=== PATIENT | female | born 1990 | race African-American/Black ===

== ENCOUNTER 2018-02-16 11:14 | Emergency (ER) | payer BC, SELFPAY ==
[2018-02-16] MEDS ORDERED: Acetaminophen 500 MG TAB ONE (11:46)
--- NOTE | 2018-02-16 12:06 | RAD ---
CHEST 1 VIEW: HISTORY: Fever and congestion. FINDINGS: Cardiac silhouette is magnified by projection. Pulmonary vasculature upper limits of normal. Medias tinum is midline. No lobar consolidation or evidence of pneumothorax. IMPRESSION: No active cardiopulmonary abnormalities are demonstrated. POS: [facility]
[2018-02-16 12:24] LABS: Anion Gap 15 mmol/L (10-20); BUN (Urea Nitrogen) 7 mg/dL (7.0-18.7); Calc. Creatinine Clearance 0 mL/min (70-130); Calcium 9.5 mg/dL (7.8-10.44); Carbon Dioxide 21 mmol/L (22-29); Chloride 106 mmol/L (98-107); Estimated GFR-MDRD 86; Glucose 99 mg/dL (70-105); Potassium 3.4 mmol/L (3.5-5.1); Sodium 139 mmol/L (136-145)
[2018-02-16 12:27] LABS: Band 4 % (5-11); Hemoglobin 13.7 g/dL (12.0-16.0); Lymphocytes 11 % (21-51); MDiff Complete? YES; Mean Corpuscular HGB CONC 32.1 g/dL (32.0-36.0); Mean Corpuscular Hemoglobin 27.9 pg (27.0-31.0); Mean Platelet Volume 8.3 fL (7.4-10.4); Monocytes 18 % (0-10); Neutrophil 66 % (42-75); PLT Morphology Comment Appears Adequate; Platelet Count 271 thou/uL (130-400); RBC Distribution Width 12.6 % (11.5-14.5); Reactive Lymphocytes 1 % (0-10); Red Blood Cell (RBC) Count 4.89 mill/uL (4.20-5.40); White Blood Cell (WBC) Count 11.2 thou/uL (4.8-10.8)
[2018-02-16] MEDS ORDERED: Dexamethasone 10 MG/ML VIAL ONE ×2 (12:46→12:47)
[2018-02-16] MEDS ORDERED: Ondansetron PF 4 MG/2 ML Vial ONE (12:46)
[2018-02-16] MEDS ORDERED: Potassium Chloride 20 MEQ TAB ONE (12:46)
== END 2018-02-16 13:33 | disposition home or self-care (01) ==
LOC: SCSER 11:14
DX: J10.1 Influenza due to other identified influenza virus with other respiratory manifestations (principal); F17.210 Nicotine dependence, cigarettes, uncomplicated
CPT/HCPCS: 71045; 80048; 83605; 85025; 87804; 96361; 96374; J1100; J2405; J7620